=== PATIENT | male | born 1990 | race African-American/Black ===

== ENCOUNTER 2020-11-04 18:11 | Inpatient (IN) ==
[2020-11-04 22:14] LABS: Basophils # (auto) 0.02 K/uL (0-0.2); Basophils % (auto) 0.2 %; Eosinophils # (auto) 0.18 K/uL (0-0.5); Eosinophils % (auto) 1.9 %; Hematocrit (blood only) 46.3 % (42-52); Hemoglobin 15.9 g/dL (14.0-18.0); Immature Granulocytes # (auto) 0.01 K/uL (0.00-0.02); Immature Granulocytes % (auto) 0.1 %; Lymphocytes % (auto) 13.5 %; Mean Corpuscular Hemoglobin 32.9 pg (25-34); Mean Corpuscular Hgb Conc 34.3 g/dL (32-36); Mean Corpuscular Volume 95.7 fL (80-100); Mean Platelet Volume 11.1 fL (7.4-10.4); Monocytes # (auto) 0.86 K/uL (0.11-0.59); Monocytes % (auto) 8.9 %; Neutrophils # (auto) 7.27 K/uL (1.4-6.5); Neutrophils % (auto) 75.4 %; Platelet Count 258 K/uL (130-400); RDW Coefficient of Variation 13.8 % (11.5-14.5); RDW Standard Deviation 48.4 fL (36.4-46.3); Red Blood Count 4.84 M/uL (4.7-6.1); White Blood Count 9.64 K/uL (4.8-10.8)
[2020-11-04 22:32] LABS: Albumin Level 4.8 gm/dl (3.4-5.0); BUN Creatinine Ratio 14.5 (10-20); Calcium 10.2 mg/dl (8.5-10.1); Creatinine Clr Calc Pharmacy 101.9 ml/min; Est GFR (African American) 86.9 ml/min; Potassium 3.9 mmol/L (3.5-5.1)
[2020-11-04 22:36] LABS: Albumin Globulin Ratio 1.3 (0.9-2); Bilirubin,Total 0.9 mg/dl (0.2-1); Globulin 3.6 gm/dl (2.5-4.0); Total Protein 8.4 gm/dl (6.4-8.2)
[2020-11-04] MEDS ORDERED: SODIUM CHLORIDE 0.9% 1000ML 1,000 ML IV SCH (23:15)
[2020-11-04] MEDS ORDERED: SODIUM CHLORIDE 0.9% 1000ML 500 ML IV ONE (23:15)
[2020-11-04] MEDS ORDERED: ONDANSETRON INJ 2 MG/ML 2 ML VIAL IV STA (23:15)
[2020-11-04] MEDS ORDERED: HYDROmorphone INJ 0.5 MG/0.5 ML SYR IV STA (23:15)
[2020-11-04] MEDS ORDERED: cloNIDine HCL 0.1 MG TAB PO ONE (23:41)
[2020-11-04] MEDS ORDERED: OPTIRAY 320 100ml IV ONE (23:41)
[2020-11-05] MEDS ORDERED: HYDROmorphone INJ 0.5 MG/0.5 ML SYR IV STA (01:27)
--- NOTE | 2020-11-05 03:07 | History & Physical Report ---
Date of Service November 05, 2020 Assessment & Plan (1) Pancreatitis: Plan: Recurrent pancreatitis- Patient reports least 5 previous episodes. He does report alcohol use above what he thinks most people drink, and these current symptoms began shortly after alcohol intake. CT scan and MRCP both suggest pancreatitis and distended gallbladder, but inability to confirm gallstones or rule in/out acute cholecystitis HIDA scan has been ordered Famotidine 20 mg IV every 12 hours Patient is advised to refrain from alcohol intake Follow serial CBC with differential, chemistry profile and lipase levels Place on LR at 150 mils per hour Zofran 4 mg IV every 6 hours as needed (2) Gallbladder anomaly: Plan: See above (3) Alcohol use disorder: Plan: Last intake at this time 2 days ago, with alcohol levels less than 3.0 in the ED He reports that he does not think he is going to withdrawal and has not had that issue in the past. We will hold off on AWSS protocol for now (4) Gastritis and duodenitis: Plan: Placed on famotidine 20 mg IV every 12 hours Patient advised that this can be directly related to alcohol irritation History of Present Illness Chief Complaint: The patient presents to the emergency department with 2 days of abdominal pain and nausea, similar to previous episodes of pancreatitis Primary Care Provider: NO PCP The patient is a 29-year-old male with a past medical history of recurrent pancreatitis. This of the symptoms late Wednesday night and early Wednesday morning after eating pizza. He reports that he is at least 5 previous episodes of pancreatitis, with most recent being about 6 months ago. Upon reviewing systems, when asked if he drinks alcohol, patient reports he probably drinks mor e than most, with last intake just before the onset of symptoms. Abnormal laboratories: Lipase 2982, glucose 103, total protein 8.4, BUN 19. Alcohol level less than 3.0. COVID-[address] scan of abdomen and pelvis with contrast: Mild peripancreatic nonspecific haziness, cannot rule out interstitial edematous pancreatitis. Moderate distended gallbladder, equivocal cholelithiasis, cannot rule out acute cholecystitis. Equivocal associated gastritis and/or duodenitis. MRCP: Acute interstitial edematous pancreatitis. Distended gallbladder. No definite stones or ductal dilatation. Allergies Allergy/AdvReac Type Severity Reaction Status Date / Time No Known Allergies Allergy Verified 11/04/20 23:30 Home Medications Medication Instructions Recorded Confirmed Type ibuprofen 200 mg tablet 600 - 800 mg PO DIRECTED PRN 11/04/20 11/04/20 His tory Past Med/Surg History Medical History (Updated 11/05/20 @ 04:53 by Ruslan Raphael MD) Pancreatitis Social History Smoking Status: Never smoker Preferred Language: Indian Feels Safe at Home: Yes Review of Systems Review of Systems: The patient denies chest pain, palpitations, shortness of breath, dyspnea on exertion, cough, lower extremity swelling, sore throat, fevers, chills, sweats, diarrhea , constipation, blood in urine or stool, dysuria, urinary frequency or urgency, lightheadedness, dizziness, headache, memory loss, loss of consciousness, rash, abnormal bruising or bleeding, imbalance, focal or generalized weakness, numbness or tingling in arms or legs, generalized arthralgias or myalgias, back or neck pain, or night sweats. The review of systems is otherwise negative other than for that already noted above, and at least 10 systems have been reviewed. Physical Exam Physical Exam: The patient is awake, alert and oriented 3, well developed and well nourished, normocephalic and atraumatic, lying in bed and in no acute distress. HEENT--PERRL, EOMI, mucous membranes and oropharynx normal. Neck--supple. No JVD. No bruits. Thyroid normal, trachea midline, no adenopathy. Heart--normal S1 and S2. No murmurs, rubs or gallops. Lungs--clear bilaterally, no respiratory distress, no accessory muscle use. Abdomen--normal bowel sounds and soft. Mild epigastric discomfort with palpation Extremities--no cyanosis or clubbing. No edema. Dermatologic--normal skin turgor, normal color, no abnormal lymph nodes, no rash. Neurologic--cranial nerves II through XII grossly intact. Rheumatologic--normal range of motion. Psychiatric--normal affect. Results & Data Results & Data ([facility]) Vital Signs (Past 12 Hours) Vital Signs Temp Pulse Pulse Resp BP BP Pulse Ox 11/05/20 01:47 57 L 18 142/110 H 96 11/05/20 00:56 77 16 151/104 H 99 11/05/20 00:01 76 16 167/119 H 100 11/04/20 23:15 78 20 187/130 H 100 11/04/20 19:05 97.7 F 98 H 18 163/110 H 100 Laboratory Results Laboratory Results WBC 9.64 K/uL (4.8-10.8) 11/04/20 Unknown RBC 4.84 M/uL (4.7-6.1) 11/04/20 Unknown Hgb 15.9 g/dL (14.0-18.0) 11/04/20 Unknown Hct 46.3 % (42-52) 11/04/20 Unknown MCV 95.7 fL (80-100) 11/04/20 Unknown MCH 32.9 pg (25-34) 11/04/20 Unknown MCHC 34.3 g/dL (32-36) 11/04/20 Unknown RDW Std Deviation 48.4 fL (36.4-46.3) H 11/04/20 Unknown RDW Coeff of Austen 13.8 % (11.5-14.5) 11/04/20 Unknown Plt Count 258 K/uL (130-400) 11/04/20 Unknown MPV 11.1 fL (7.4-10.4) H 11/04/20 Unknown Immature Gran % (Auto) 0.1 % 11/04/20 Unknown Neut % (Auto) 75.4 % 11/04/20 Unknown Lymph % (Auto) 13.5 % 11/04/20 Unknown [place] % (Auto) 8.9 % 11/04/20 Unknown Eos % (Auto) 1.9 % 11/04/20 Unknown Baso % (Auto) 0.2 % 11/04/20 Unknown Neut # (Auto) 7.27 K/uL (1.4-6.5) H 11/04/20 Unknown Lymph # (Auto) 1.30 K/uL (1.2-3.4) 11/04/20 Unknown [place] # (Auto) 0.86 K/uL (0.11-0.59) H 11/04/20 Unknown Eos # (Auto) 0.18 K/uL (0-0.5) 11/04/20 Unknown Baso # (Auto) 0.02 K/uL (0-0.2) 11/04/20 Unknown Immature Gran # (Auto) 0.01 K/uL (0.00-0.02) 11/04/20 Unknown Sodium 138 mmol/L (136-145) 11/04/20 Unknown Potassium 3.9 mmol/L (3.5-5.1) 11/04/20 Unknown Chloride 104 mmol/L (98-107) 11/04/20 Unknown Carbon Dioxide 27 mmol/L (21-32) 11/04/20 Unknown Anion Gap 8.0 (3-11) 11/04/20 Unknown BUN 19 mg/dl (7-18) H 11/04/20 Unknown Creatinine 1.29 mg/dl (0.6-1.4) 11/04/20 Unknown Est Cr Clr Drug Dosing 101.9 ml/min 11/04/20 Unknown Est GFR ( Amer) 86.9 ml/min 11/04/20 Unknown Est GFR (Non-Af Amer) 75.0 ml/min 11/04/20 Unknown BUN/Creatinine Ratio 14.5 (10-20) 11/04/20 Unknown Glucose 103 mg/dl (70-99) H 11/04/20 Unknown Calcium 10.2 mg/dl (8.5-10.1) H 11/04/20 Unknown Total Bilirubin 0.9 mg/dl (0.2-1) 11/04/20 Unknown AST 27 U/L (15-37) 11/04/20 Unknown ALT 47 U/L (12-78) 11/04/20 Unknown Alkaline Phosphatase 100 U/L (45-117) 11/04/20 Unknown Total Protein 8.4 gm/dl (6.4-8.2) H 11/04/20 Unknown Albumin 4.8 gm/dl (3.4-5.0) 11/04/20 Unknown Globulin 3.6 gm/dl (2.5-4.0) 11/04/20 Unknown Albumin/Globulin Ratio 1.3 (0.9-2) 11/04/20 Unknown Lipase 2982 U/L (73-393) H 11/04/20 Unknown Ethyl Alcohol mg/dL < 3.0 mg/dl (0-3) 11/05/20 02:59 COVID-19 Eval Order Covid19 at [facility] 11/04/20 23:54 SARS-CoV-2 (PCR) NEGATIVE (Negative) 11/04/20 23:54 Diagnostic Findings [facility] Patient: ZENIA PLUNKETT (Male) : 89 Status: ER Date: 11/04/20 23:45 Room #: A2 History: Patient reports abdominal pain since Wednesday AM. Nausea and Vomiting History of pancreatitis. Opti 320 93 mL Patient's IV from ER leaked on first attempt to inject/scan. Injection and scan stopped. 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 Appendix present Slices: [id number] Priors: Tech: Ana Santos @ [phone] Exams: CT ABDOMEN & PELVIS With Contrast Contrast: IV Amt: Optiray 320 93 mL Accession Numbers: [id number] Referring Physician: KI GERARD Preliminary Findings Only See Final Report For Complete Findings CT ABDOMEN & PELVIS With Contrast: Mild peripancreatic haziness, nonspecific, cannot rule out interstitial edematous pancreatitis. Moderate distended gallbladder, equivocal cholelithiasis, cannot rule out acute cholecystitis. Equivocal associated gastritis and/or duodenitis. No fluid collection, necrosis or abscess. No SBO, free air or ascites. Normal appendix. Fatty liver. Radiologist: Tanja Tafoya M.D. Study ready at 23:50 and initial results transmitted at 00:07 *This report constitutes a preliminary interpretation only. Non-acute findings felt to be unrelated to the clinical presentation may not be discussed in this report. The study will be interpreted and a final report will be generated by the local Radiologist the following shift. To reach the hospital radiology department call [phone]. If a discrepancy is found between the preliminary and final interpretations of this study, please notify us via our Client Portal at [email or web address].You can also fax this report with a description of the discrepancy, or include the final report, to our daytime fax number [phone].If faxing, please indicate the severity of discrepancy using one of the following categories: [ ] 1 - Agree/Informational [ ] 2 - Unlikely to Affect Management [ ] 3 - Possible Eventual Change of Management [ ] 4 - Probable Immediate Change of Management For all other patient related information, please fax us at [phone]. [id number] [facility] Patient: ZENIA PLUNKETT (Male) : 89 Status: ER Date: 11/05/20 03:43 Room #: A2 History: abd pain since wednesday morning hx of pancreatitis. nausea and vomitting Slices: [id number] Priors: CT ABD/PELVIS Tech: Goran Jones @ [phone] Exams: MRCP Contrast: Accession Numbers: [id number] Referring Physician: REFERRED SELF Preliminary Findings Only See Final Report For Complete Findings MRCP : Comparison is made with CT abdomen pelvis done earlier. Acute interstitial edematous pancreatitis. Distended gallbladder, no definite stones or ductal dilatation. Radiologist: Tanja Tafoya M.D. Study ready at 03:47 and initial results transmitted at 04:25 *This report constitutes a preliminary interpretation only. Non-acute findings felt to be unrelated to the clinical presentation may not be discussed in this report. The study will be interpreted and a final report will be generated by the local Radiologist the following shift. To reach the hospital radiology department call [phone]. If a discrepancy is found between the preliminary and final interpretations of this study, please notify us via our Client Portal at [email or web address].You can also fax this report with a description of the discrepancy, or include the final report, to our daytime fax number [phone].If faxing, please indicate the severity of discrepancy using one of the following categories: [ ] 1 - Agree/Informational [ ] 2 - Unlikely to Affect Management [ ] 3 - Possible Eventual Change of Management [ ] 4 - Probable Immediate Change of Management For all other patient related information, please fax us at [phone]. [id number] Code Status & VTE Plan Code Status Full code VTE Prophylaxis Plan VTE Prophylaxis will be ordered: Yes PG Care Time/CCT Total # of Minutes Spent Total Time Spent with Patient: Total time spent is greater than 50% in coordination of care (as documented) at patient's floor/unit and/or counseling patient: Coding Level of Care Code 84179 Initial Inpt Care Lvl 2 Diagnoses Pancreatitis K85.90 Gallbladder anomaly Q44.1 Alcohol use disorder Gastritis and duodenitis K29.90
[2020-11-05] MEDS ORDERED: LORazepam 0.5 MG/1 ML VIAL IV PRN (03:08)
[2020-11-05] MEDS: KETOROLAC TROMETHAMINE 15 MG/ML VIAL IV PRN ×2 (05:34→17:51)
[2020-11-05] MEDS ORDERED: FLUARIX QUADRIVALENT 0.5 ML SYR IM ONE (06:15)
[2020-11-05] MEDS: FAMOTIDINE 20 MG in SYRINGE 3 ML IV SCH ×2 (06:21→20:09)
[2020-11-05] MEDS: LACTATED RINGER'S 1,000 ML IV SCH ×2 (06:21→12:09)
[2020-11-05] MEDS ORDERED: KETOROLAC TROMETHAMINE 15 MG/ML VIAL IV ONE (06:37)
--- NOTE | 2020-11-05 07:45 | CT Scan Report ---
CT SCAN OF THE ABDOMEN AND PELVIS WITH IV CONTRAST CLINICAL HISTORY: Generalized abdominal pain. Nausea and vomiting. Pancreatitis. COMPARISON STUDY: No priors. TECHNIQUE: Following the IV administration of 93 cc of Optiray 320, CT scan of the abdomen and pelvi s is performed from the lung bases to the proximal femora. Images are reviewed in the axial, sagittal , and coronal planes. There was an IV malfunction with the initial contrast injection. IV contrast wa s then administered without complication. A dose lowering technique was utilized adhering to the prin ciples of JACINDA. CT DOSE: 347.28 mGy.cm FINDINGS: Lung bases: The heart is normal in size and without pericardial effusion. The lung bases are clear. Liver: The contrast-enhanced liver is normal in size and contour. Diminished hepatic attenuation sugg ests steatosis. There is no intrahepatic biliary ductal dilatation. The hepatic veins and portal vein s are patent. Gallbladder: The gallbladder is distended but otherwise normal in appearance. Spleen: Normal in size and attenuation. Pancreas: The pancreas is mildly edematous. There is peripancreatic stranding and fluid, and the appe arance is consistent with acute pancreatitis. The duct is normal in caliber. The gland enhances throu ghout. The splenic vein is patent. No organized peripancreatic fluid collection is identified. There are prominent tiny peripancreatic lymph nodes. Adrenal glands: Unremarkable. Kidneys: The contrast enhanced kidneys are normal in size and without hydronephrosis. The kidneys enh ance and excrete symmetrically. Abdominal vasculature: The abdominal aorta is normal in course and caliber. Bowel: Mild fecal retention is seen throughout the colon. There is no bowel obstruction. The appendix is well-visualized and normal Peritoneum: There is no intraperitoneal free air or abdominal ascites. There is a fat-containing umbi lical hernia. Lymphadenopathy: None. Pelvic viscera: The bladder, prostate, and seminal vesicles are normal as visualized. Skeletal structures: No lytic or blastic lesions are seen. IMPRESSION: 1. Findings are consistent with acute pancreatitis. 2. The gland enhances throughout and there is no organized peripancreatic fluid collection. 3. Hepatic steatosis. ACT 112: Negative or not required by law. Electronically signed by: Gallito Franz M.D. 11/05/2020 7:44 AM
--- NOTE | 2020-11-05 08:07 | Magnetic Resonance Report ---
MR MRCP HISTORY: pancreatitis, dilated gallbladder on CT TECHNIQUE: MRCP of the abdomen was performed without contrast according to standard departmental prot ocol. COMPARISON STUDY: Abdomen and pelvis CT 11/04/2020. FINDINGS: The lung bases are clear. The liver, spleen, adrenal glands, and kidneys unremarkable. The gallbladder remains mildly distended. No gallbladder wall thickening or gallstones identified. Mild p eripancreatic edema persists consistent with acute pancreatitis. The main portal vein is patent. No r etroperitoneal lymphadenopathy. No evidence for dilatation of the common bile duct or main pancreatic duct. The main pancreatic duct is not well visualized due to the motion artifact. The mid common joão e duct is also not well identified and is likely transient decompressed by edematous pancreas. IMPRESSION: 1. Acute pancreatitis, unchanged. 2. Mildly distended gallbladder. No gallstones. 3. No evidence for dilatation of the common bile duct or main pancreatic duct. ACT 112: Negative or not required by law. Electronically signed by: Mg Medina M.D. 11/05/2020 8:05 AM
[2020-11-05] MEDS: MoRPHine SULFATE 4 MG/ML 1 ML CARP\\VIAL IV PRN ×7 (09:12→23:43)
--- NOTE | 2020-11-05 10:04 | Hospitalist Progress Note ---
Date of Service November 05, 2020 Assessment & Plan (1) Pancreatitis: Plan: - Recurrent pancreatitis - reports approx. 5 previous episodes lasting about 2-3 days - last episode approx. 6 months ago - CT/MRCP - acute pancreatitis - mild peripancreatic edema; mildly distended GB with no stones; no evidence of dilatation of the CBD or main pancreatic duct - Given level of pain will hold on HIDA to allow for narcotic pain relief - will tentatively plan for scan tomorrow to further evaluated distended GB - Famotidine 20 mg IV BID; Pain and anti-emetic regimen - LR at 150 mL/hr - Does have an appetite - keep a full liquid diet for now and assess for advancement - Monitor labs in AM (2) Gallbladder anomaly: Plan: - See above; holding on HIDA to allow for adequate pain control of pancreatitis (3) Alcohol use disorder: Plan: - Last intake was 2 days ago; no detected alcohol on admission - reports no history of withdrawal but feels he may drink more alcohol then most - No signs of withdrawal and can hold on AWSS protocol currently but monitor (4) Gastritis and duodenitis: Plan: - Placed on famotidine 20 mg IV every 12 hours - Patient advised that this can be directly related to alcohol irritation Plan: - Continue aggressive hydration and maintain pain control; will monitor for ability to do HIDA tomorrow - Labs in AM Admission and Anticipated Discharge Date Admission Date: November 05, 2020 Subjective Reports ongoing LUQ pain. He thought he could tolerate waiting for HIDA but Toradol was not helping. Morphine is assisting with pain control and will reschedule HIDA. He does report an appetite and will allow a light diet. He had diarrhea on Wednesday but this has since resolved. Verbalizes no new complaints Review of Systems Review of Systems: REVIEW OF SYSTEMS General/Constitutional: Denies fever/chills Cardiovascular: Denies chest pain, palpitations, edema Respiratory: Denies cough, sputum, SOB, wheezing GI: + LUQ abdominal pain with radiation to back; Denies nausea, vomiting, constipation, diarrhea, melena/hematochezia : Denies dysuria Musculoskeletal: Denies joint/muscle aches Neurologic: Denies dizziness/lightheadedness Psychiatric: Denies H/O or active alcohol withdrawal Skin: Denies rash Physical Exam Physical Exam: PHYSICAL EXAM General Appearance: WDWN in NAD who is A&O x 3 HEENT: Head is normocephalic/atraumatic; Hearing grossly intact; Mucous membranes moist Neck: Supple; Trachea midline; Neg JVD Heart: RRR with no M/G/R Lungs: CTA in all lung arteaga bilaterally; Respirations unlabored; Neg accessory muscle use Abdomen: Soft, non-distended; Positive BS x 4 quadrants; no acute abdomen, guarding, or rigidity - Tenderness to LUQ Extremities: Capillary refill < 2 seconds; Neg cyanosis or edema Neurological: Speech clear; Gross motor/sensory function intact; Neg focal neurologic deficits Psychiatric: Appropriate mood/affect Skin: Normal Color; Warm/Dry Results & Data Results & Data ([facility]) Vital Signs (Past 12 Hours) Vital Signs Temp Pulse Pulse Resp BP BP Pulse Ox 11/05/20 07:31 36.6 C 66 16 159/97 H 96 11/05/20 06:30 64 159/111 H 11/05/20 05:24 36.5 C 75 15 170/123 H 100 11/05/20 05:11 77 16 152/98 H 99 11/05/20 04:27 80 16 144/102 H 100 11/05/20 01:47 57 L 18 142/110 H 96 11/05/20 00:56 77 16 151/104 H 99 11/05/20 00:01 76 16 167/119 H 100 11/04/20 23:15 78 20 187/130 H 100 PG Care Time/CCT Total # of Minutes Spent Total Time Spent with Patient: Total time spent is greater than 50% in coordination of care (as documented) at patient's floor/unit and/or counseling patient: Coding Level of Care Code None Diagnoses Pancreatitis K85.90 Gallbladder anomaly Q44.1 Alcohol use disorder Gastritis and duodenitis K29.90
[2020-11-05] MEDS: ONDANSETRON INJ 2 MG/ML 2 ML VIAL IV PRN ×2 (12:08→19:33)
[2020-11-05 12:27] LABS: Amphetamines+Metham, Urine Neg (Neg); Barbiturates, Urine Neg (Neg); Benzodiazepine, Urine Neg (Neg); Cocaine, Urine Neg (Neg); MDMA (Ecstacy), Urine Neg (Neg); Methadone, Urine Neg (Neg); Opiate, Urine Pos (Neg); Phencyclidine, Urine Neg (Neg)
[2020-11-05] MEDS: hydrALAZINE HCL 20 MG/ML VIAL IV PRN (18:00)
--- NOTE | 2020-11-05 18:31 | Emergency Department Note ---
History of Present Illness General Chief complaint: Abdominal Pain Stated complaint: ABD PAIN, VOMITING Time Seen by Provider: 11/04/20 23:09 History of Present Illness Maximum Pain Intensity: 5 Home Medications Medication Instructions Recorded Confirmed Type ibuprofen 200 mg tablet 600 - 800 mg PO DIRECTED PRN 11/04/20 11/04/20 Histo ry Allergies Allergy/AdvReac Type Severity Reaction Status Date / Time No Known Allergies Allergy Verified 11/04/20 23:30 Past Med/Surg History Medical History (Updated 11/05/20 @ 04:53 by Ruslan Raphael MD) Pancreatitis Social History Smoking Status: Former smoker Cigarettes Per Day: 3 packs; Second Hand Exposure: No; Hx Alcohol Use: Yes Alcohol type: beer, wine and hard liquor Hx Substance Use: No Preferred Language: Cambodian Communication Ability: Effective 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 Beliefs That Will Affect Care: None Current Living Situation: Alone Feels Safe at Home: Yes Assistive Devices: None Physical Exam Vital Signs Vital Signs - 24 hr 11/04/20 19:05 11/04/20 23:15 11/05/20 00:01 Temperature 36.5 C Temperature Source Temporal Artery Scan Pulse Rate 98 H Pulse Rate [Right Finger] 78 76 Pulse Rhythm [Right Finger] Respiratory Rate 18 20 16 Respiratory Effort / Characteristics Non-Labored Non-Labored Respiratory Depth Normal Normal Respiratory Pattern Regular Blood Pressure 163/110 H Blood Pressure [Right Arm] 187/130 H 167/119 H Blood Pressure Mean 127 Blood Pressure Mean [Right Arm] 149 135 Blood Pressure Position [Right Arm] Lying Pulse Oximetry 100 100 100 Oxygen Delivery Method Room Air Room Air Room Air Sepsis Recent Fever Within 48 Hours No Sepsis New/Unexplained Change in Mental Status No Sepsis Action Taken by Nursing No Action Required 11/05/20 00:56 11/05/20 01:47 Temperature Temperature Source Pulse Rate Pulse Rate [Right Finger] 77 57 L Pulse Rhythm [Right Finger] Regular Respiratory Rate 16 18 Respiratory Effort / Characteristics Respiratory Depth Normal Normal Respiratory Pattern Blood Pressure Blood Pressure [Right Arm] 151/104 H 142/110 H Blood Pressure Mean Blood Pressure Mean [Right Arm] 119 120 Blood Pressure Position [Right Arm] Pulse Oximetry 99 96 Oxygen Delivery Method Room Air Sepsis Recent Fever Within 48 Hours Sepsis New/Unexplained Change in Mental Status Sepsis Action Taken by Nursing Course Administered Medications Hydralazine HCl (Hydralazine Hcl 20 Mg/Ml Vial) 10 mg IV Q6H PRN PRN Reason: Hypertension Stop: 12/05/20 17:09 Last Admin: 11/05/20 18:00 Dose: 10 mg Documented by: [id number] Lactated Ringer's (Lr) 1,000 mls @ 150 mls/hr IV .Q6H40M LUI Stop: 11/05/20 18:49 Last Admin: 11/05/20 12:09 Dose: 150 mls/hr Documented by: [id number] Infusion: 11/05/20 12:09 Dose: 150 mls/hr Documented by: [id number] Admin: 11/05/20 06:21 Dose: 150 mls/hr Documented by: [id number] Famotidine 20 mg/ Syringe 5 mls @ 2.5 mls/min IV Q12 LUI Stop: 12/05/20 05:59 Last Admin: 11/05/20 06:21 Dose: 2.5 mls/min Documented by: [id number] Ketorolac Tromethamine (Ketorolac Tromethamine 15 Mg/Ml Vial) 15 mg IV Q6H PRN PRN Reason: Moderate Pain Stop: 11/10/20 05:22 Last Admin: 11/05/20 17:51 Dose: 15 mg Documented by: [id number] Admin: 11/05/20 05:34 Dose: 15 mg Documented by: [id number] Morphine Sulfate (Morphine Sulfate 4 Mg/Ml 1 Ml Carp\Vial) 4 mg IV Q2H PRN PRN Reason: Pain Stop: 11/19/20 09:02 Last Admin: 11/05/20 17:01 Dose: 4 mg Documented by: [id number] Admin: 11/05/20 14:56 Dose: 4 mg Documented by: [id number] Ondansetron HCl (Ondansetron Inj 2 Mg/Ml 2 Ml Vial) 4 mg IV Q6H PRN PRN Reason: Nausea Stop: 12/05/20 05:29 Last Admin: 11/05/20 12:08 Dose: 4 mg Documented by: [id number] Discontinued Medications Clonidine HCl (Clonidine Hcl 0.1 Mg Tab) 0.1 mg PO NOW ONE Stop: 11/04/20 23:42 Last Admin: 11/05/20 00:06 Dose: 0.1 mg Documented by: [id number] Hydromorphone HCl (Hydromorphone Inj 0.5 Mg/0.5 Ml Syr) 0.5 mg IV NOW STA Stop: 11/04/20 23:16 Last Admin: 11/04/20 23:46 Dose: 0.5 mg Documented by: [id number] Hydromorphone HCl (Hydromorphone Inj 0.5 Mg/0.5 Ml Syr) 0.5 mg IV NOW STA Stop: 11/05/20 01:28 Last Admin: 11/05/20 01:35 Dose: 0.5 mg Documented by: [id number] Sodium Chloride (Nss 1000ml) 1,000 mls @ 125 mls/hr IV .Q8H LUI Stop: 12/04/20 23:14 Last Infusion: 11/05/20 06:27 Dose: 0 mls/hr Documented by: [id number] Admin: 11/05/20 00:36 Dose: 125 mls/hr Documented by: [id number] Sodium Chloride (Nss 1000ml) 500 mls @ 999 mls/hr IV .Q31M ONE Stop: 11/04/20 23:45 Last Infusion: 11/05/20 00:22 Dose: 0 mls/hr Documented by: [id number] Admin: 11/04/20 23:51 Dose: 999 mls/hr Documented by: [id number] Ioversol (Optiray 320 100ml) 93 ml IV ONCE ONE Stop: 11/04/20 23:42 Last Admin: 11/04/20 23:41 Dose: 93 ml Documented by: [id number] Ketorolac Tromethamine (Ketorolac Tromethamine 15 Mg/Ml Vial) 15 mg IV NOW ONE Stop: 11/05/20 06:38 Last Admin: 11/05/20 06:40 Dose: 15 mg Documented by: [id number] Morphine Sulfate (Morphine Sulfate 4 Mg/Ml 1 Ml Carp\Vial) 4 mg IV Q3H PRN PRN Reason: Pain Stop: 11/19/20 09:02 Last Admin: 11/05/20 12:08 Dose: 4 mg Documented by: [id number] Admin: 11/05/20 09:12 Dose: 4 mg Documented by: [id number] Ondansetron HCl (Ondansetron Inj 2 Mg/Ml 2 Ml Vial) 4 mg IV NOW STA Stop: 11/04/20 23:16 Last Admin: 11/04/20 23:47 Dose: 4 mg Documented by: [id number] Medical Decision Making Laboratory Data Result diagrams: 11/04/20 Unknown 11/04/20 Unknown Lab Results 11/04/20 11/04/20 11/04/20 Range/Units 23:54 23:54 Unknown WBC 9.64 (4.8-10.8) K/uL RBC 4.84 (4.7-6.1) M/uL Hgb 15.9 (14.0-18.0) g/dL Hct 46.3 (42-52) % MCV 95.7 (80-100) fL MCH 32.9 (25-34) pg MCHC 34.3 (32-36) g/dL RDW Std Deviation 48.4 H (36.4-46.3) fL RDW Coeff of [place] 13.8 (11.5-14.5) % Plt Count 258 (130-400) K/uL MPV 11.1 H (7.4-10.4) fL Immature Gran % (Auto) 0.1 % Neut % (Auto) 75.4 % Lymph % (Auto) 13.5 % [place] % (Auto) 8.9 % Eos % (Auto) 1.9 % Baso % (Auto) 0.2 % Neut # (Auto) 7.27 H (1.4-6.5) K/uL Lymph # (Auto) 1.30 (1.2-3.4) K/uL [place] # (Auto) 0.86 H (0.11-0.59) K/uL Eos # (Auto) 0.18 (0-0.5) K/uL Baso # (Auto) 0.02 (0-0.2) K/uL Immature Gran # (Auto) 0.01 (0.00-0.02) K/uL Sodium (136-145) mmol/L Potassium (3.5-5.1) mmol/L Chloride (98-107) mmol/L Carbon Dioxide (21-32) mmol/L Anion Gap (3-11) BUN (7-18) mg/dl Creatinine (0.6-1.4) mg/dl Est Cr Clr Drug Dosing ml/min Est GFR ( Amer) ml/min Est GFR (Non-Af Amer) ml/min BUN/Creatinine Ratio (10-20) Glucose (70-99) mg/dl Calcium (8.5-10.1) mg/dl Total Bilirubin (0.2-1) mg/dl AST (15-37) U/L ALT (12-78) U/L Alkaline Phosphatase (45-117) U/L Total Protein (6.4-8.2) gm/dl Albumin (3.4-5.0) gm/dl Globulin (2.5-4.0) gm/dl Albumin/Globulin Ratio (0.9-2) Lipase (73-393) U/L Ethyl Alcohol mg/dL (0-3) mg/dl COVID-19 Eval Order Covid19 at [facility] SARS-CoV-2 (PCR) NEGATIVE (Negative) 11/04/20 11/05/20 Range/Units Unknown 02:59 WBC (4.8-10.8) K/uL RBC (4.7-6.1) M/uL Hgb (14.0-18.0) g/dL Hct (42-52) % MCV (80-100) fL MCH (25-34) pg MCHC (32-36) g/dL RDW Std Deviation (36.4-46.3) fL RDW Coeff of [place] (11.5-14.5) % Plt Count (130-400) K/uL MPV (7.4-10.4) fL Immature Gran % (Auto) % Neut % (Auto) % Lymph % (Auto) % [place] % (Auto) % Eos % (Auto) % Baso % (Auto) % Neut # (Auto) (1.4-6.5) K/uL Lymph # (Auto) (1.2-3.4) K/uL [place] # (Auto) (0.11-0.59) K/uL Eos # (Auto) (0-0.5) K/uL Baso # (Auto) (0-0.2) K/uL Immature Gran # (Auto) (0.00-0.02) K/uL Sodium 138 (136-145) mmol/L Potassium 3.9 (3.5-5.1) mmol/L Chloride 104 (98-107) mmol/L Carbon Dioxide 27 (21-32) mmol/L Anion Gap 8.0 (3-11) BUN 19 H (7-18) mg/dl Creatinine 1.29 (0.6-1.4) mg/dl Est Cr Clr Drug Dosing 101.9 ml/min Est GFR ( Amer) 86.9 ml/min Est GFR (Non-Af Amer) 75.0 ml/min BUN/Creatinine Ratio 14.5 (10-20) Glucose 103 H (70-99) mg/dl Calcium 10.2 H (8.5-10.1) mg/dl Total Bilirubin 0.9 (0.2-1) mg/dl AST 27 (15-37) U/L ALT 47 (12-78) U/L Alkaline Phosphatase 100 (45-117) U/L Total Protein 8.4 H (6.4-8.2) gm/dl Albumin 4.8 (3.4-5.0) gm/dl Globulin 3.6 (2.5-4.0) gm/dl Albumin/Globulin Ratio 1.3 (0.9-2) Lipase 2982 H (73-393) U/L Ethyl Alcohol mg/dL < 3.0 (0-3) mg/dl COVID-19 Eval Order SARS-CoV-2 (PCR) (Negative) Imaging Data Radiologist's Impression: Abdomen/Pelvis CT 11/04/20 23:16 CT SCAN OF THE ABDOMEN AND PELVIS WITH IV CONTRAST CLINICAL HISTORY: Generalized abdominal pain. Nausea and vomiting. Pancreatitis. COMPARISON STUDY: No priors. TECHNIQUE: Following the IV administration of 93 cc of Optiray 320, CT scan of the abdomen and pelvis is performed from the lung bases to the proximal femora. Images are reviewed in the axial, sagittal, and coronal planes. There was an IV malfunction with the initial contrast injection. IV contrast was then administered without complication. A dose lowering technique was utilized adhering to the principles of ALARA. CT DOSE: 347.28 mGy.cm FINDINGS: Lung bases: The heart is normal in size and without pericardial effusion. The lung bases are clear. Liver: The contrast-enhanced liver is normal in size and contour. Diminished hepatic attenuation suggests steatosis. There is no intrahepatic biliary ductal dilatation. The hepatic veins and portal veins are patent. Gallbladder: The gallbladder is distended but otherwise normal in appearance. Spleen: Normal in size and attenuation. Pancreas: The pancreas is mildly edematous. There is peripancreatic stranding and fluid, and the appearance is consistent with acute pancreatitis. The duct is normal in caliber. The gland enhances throughout. The splenic vein is patent. No organized peripancreatic fluid collection is identified. There are prominent tiny peripancreatic lymph nodes. Adrenal glands: Unremarkable. Kidneys: The contrast enhanced kidneys are normal in size and without hydronephrosis. The kidneys enhance and excrete symmetrically. Abdominal vasculature: The abdominal aorta is normal in course and caliber. Bowel: Mild fecal retention is seen throughout the colon. There is no bowel obstruction. The appendix is well-visualized and normal Peritoneum: There is no intraperitoneal free air or abdominal ascites. There is a fat-containing umbilical hernia. Lymphadenopathy: None. Pelvic viscera: The bladder, prostate, and seminal vesicles are normal as visualized. Skeletal structures: No lytic or blastic lesions are seen. IMPRESSION: 1. Findings are consistent with acute pancreatitis. 2. The gland enhances throughout and there is no organized peripancreatic fluid collection. 3. Hepatic steatosis. ACT 112: Negative or not required by law. Electronically signed by: Gallito Franz M.D. 11/05/2020 7:44 AM Cholangiopancreatography MRI 11/05/20 02:41 MR MRCP HISTORY: pancreatitis, dilated gallbladder on CT TECHNIQUE: MRCP of the abdomen was performed without contrast according to standard departmental protocol. COMPARISON STUDY: Abdomen and pelvis CT 11/04/2020. FINDINGS: The lung bases are clear. The liver, spleen, adrenal glands, and kidneys unremarkable. The gallbladder remains mildly distended. No gallbladder wall thickening or gallstones identified. Mild peripancreatic edema persists consistent with acute pancreatitis. The main portal vein is patent. No retroperitoneal lymphadenopathy. No evidence for dilatation of the common bile duct or main pancreatic duct. The main pancreatic duct is not well visualized due to the motion artifact. The mid common bile duct is also not well identified and is likely transient decompressed by edematous pancreas. IMPRESSION: 1. Acute pancreatitis, unchanged. 2. Mildly distended gallbladder. No gallstones. 3. No evidence for dilatation of the common bile duct or main pancreatic duct. ACT 112: Negative or not required by law. Electronically signed by: Mg Medina M.D. 11/05/2020 8:05 AM Discharge Plan Visit Data Chief Complaint: Abdominal Pain Stated Complaint: ABD PAIN, VOMITING ED Provider: Agustin,Cintia B Patient Disposition: Admitted As Inpatient Discharge Instructions Interventions: ED Discharge Assessment Last Done: 11/05/20 05:11
[2020-11-05] MEDS ORDERED: KETOROLAC TROMETHAMINE 15 MG/ML VIAL IV PRN (19:33)
[2020-11-06] MEDS ORDERED: ONDANSETRON INJ 2 MG/ML 2 ML VIAL ONE (00:15)
[2020-11-06] MEDS ORDERED: diphenhydrAMINE 50 MG/ML VIAL IV STA (00:25)
[2020-11-06] MEDS ORDERED: SUCRALFATE 1 GM TAB PO ONE (00:45)
[2020-11-06] MEDS ORDERED: SUCRALFATE 1 GM/10 ML UDC PO ONE (01:15)
[2020-11-06] MEDS: ONDANSETRON INJ 2 MG/ML 2 ML VIAL IV PRN ×2 (04:59→08:51)
[2020-11-06] MEDS: MoRPHine SULFATE 4 MG/ML 1 ML CARP\\VIAL IV PRN ×7 (04:59→21:44)
[2020-11-06 07:02] LABS: Basophils # (auto) 0.03 K/uL (0-0.2); Basophils % (auto) 0.3 %; Hematocrit (blood only) 37.8 % (42-52); Immature Granulocytes # (auto) 0.02 K/uL (0.00-0.02); Immature Granulocytes % (auto) 0.2 %; Lymphocytes # (auto) 1.05 K/uL (1.2-3.4); Lymphocytes % (auto) 10.7 %; Mean Corpuscular Hgb Conc 34.4 g/dL (32-36); Mean Corpuscular Volume 93.1 fL (80-100); Mean Platelet Volume 11.3 fL (7.4-10.4); Monocytes % (auto) 9.2 %; Neutrophils # (auto) 7.71 K/uL (1.4-6.5); Neutrophils % (auto) 78.6 %; Platelet Count 214 K/uL (130-400); RDW Coefficient of Variation 13.6 % (11.5-14.5); RDW Standard Deviation 46.6 fL (36.4-46.3); Red Blood Count 4.06 M/uL (4.7-6.1); White Blood Count 9.81 K/uL (4.8-10.8)
[2020-11-06 07:37] LABS: Albumin Globulin Ratio 1.1 (0.9-2); Albumin Level 3.8 gm/dl (3.4-5.0); BUN Creatinine Ratio 11.8 (10-20); Bilirubin,Total 0.7 mg/dl (0.2-1); Calcium 9.1 mg/dl (8.5-10.1); Creatinine Clr Calc Pharmacy 127.8 ml/min; Est GFR (African American) 115.4 ml/min; Est GFR (Non-African American) 99.6 ml/min; Globulin 3.4 gm/dl (2.5-4.0); Potassium 4.6 mmol/L (3.5-5.1); Total Protein 7.2 gm/dl (6.4-8.2)
[2020-11-06] MEDS: FAMOTIDINE 20 MG in SYRINGE 3 ML IV SCH ×2 (08:59→20:03)
[2020-11-06] MEDS: LACTATED RINGER'S 1,000 ML IV SCH ×2 (09:44→18:28)
[2020-11-06] MEDS: SUCRALFATE 1 GM/10 ML UDC PO SCH ×4 (10:25→20:02)
[2020-11-06] MEDS: PANTOprazole 40 MG in SYRINGE 0 ML IV SCH ×2 (10:25→20:02)
[2020-11-06 11:11] LABS: Hematocrit (blood only) 36.6 % (42-52); Hemoglobin 12.4 g/dL (14.0-18.0)
--- NOTE | 2020-11-06 17:47 | Hospitalist Progress Note ---
Date of Service November 06, 2020 Assessment & Plan (1) Pancreatitis: Plan: - Recurrent pancreatitis - reports approx. 5 previous episodes lasting about 2-3 days - last episode approx. 6 months ago - CT/MRCP - acute pancreatitis - mild peripancreatic edema; mildly distended GB with no stones; no evidence of dilatation of the CBD or main pancreatic duct - Given level of pain will hold on HIDA to allow for narcotic pain relief - Famotidine 20 mg IV BID and add Protonix IV BID; Pain and anti-emetic regimen - LR at 150 mL/hr - Does have an appetite - will reduce to clears given ongoing pain and assess tomorrow for advancement - Did have some blood tinged vomit and will hold further Toradol and can use Tylenol for mild pain - Hgb is holding and will monitor - remains hemodynamically stable - Monitor labs in AM (2) Gallbladder anomaly: Plan: - See above; holding on HIDA to allow for adequate pain control of pancreatitis (3) Alcohol use disorder: Plan: - Last intake was 2 days ago; no detected alcohol on admission - reports no history of withdrawal but feels he may drink more alcohol then most - No signs of withdrawal and can hold on AWSS protocol currently but monitor; has been having higher BPs but suspect this is pain related as he does not appear to be withdrawaling at this time (4) Gastritis and duodenitis: Plan: - Placed on famotidine 20 mg IV every 12 hours; Protonix BID - Blood-tinged vomit yesterday - maybe some bunny-pike tearing? Hgb is stable and maybe some dilutional given fluids; AM labs - Hold Toradol and use Tylenol for breakthrough pain - Patient advised that this can be directly related to alcohol irritation Plan: - Continue aggressive hydration and maintain pain control; will monitor for ability to do HIDA tomorrow - Labs in AM - Pt reports chronic issues with swallowing (mostly pills and intermittently solids) noticed this after getting out of the [employer] - did recommend that he get GI follow-up and this can be deferred to outpatient, have had numerous members with eosinophilic esophagitis causing chronic dysphagia. No eosinophilia on labs but may warrant scopes. Discussed GI consultation here and he does not want to do a scope at this time - if Hgb stays stable without further blood-tinged vomit can defer to outpatient F/U Admission and Anticipated Discharge Date Admission Date: November 05, 2020 Subjective Was having more abdominal pain this AM with breakfast of full liquids however was impro jessica after lunch with keeping only clears on board. He did have some bright red possibly bloody vomit yesterday. He states he did have a red popsicle earlier. No further episodes. Hemoglobin slightly lower but stable and will monitor. Review of Systems Review of Systems: REVIEW OF SYSTEMS General/Constitutional: Denies fever/chills ENT: + chronic difficulty swallowing - mostly pills Cardiovascular: Denies chest pain, palpitations, edema Respiratory: Denies cough, sputum, SOB, wheezing GI: + LUQ abdominal pain (improved this afternoon); Denies nausea, vomiting, constipation, diarrhea, melena/hematochezia : Denies dysuria Musculoskeletal: Denies joint/muscle aches Neurologic: Denies dizziness/lightheadedness Psychiatric: Denies H/O or active alcohol withdrawal Skin: Denies rash Physical Exam Physical Exam: PHYSICAL EXAM General Appearance: WDWN in NAD who is A&O x 3 HEENT: Head is normocephalic/atraumatic; Hearing grossly intact; Mucous membranes moist Neck: Supple; Trachea midline; Neg JVD Heart: RRR with no M/G/R Lungs: CTA in all lung arteaga bilaterally; Respirations unlabored; Neg accessory muscle use Abdomen: Soft, non-distended; Positive BS x 4 quadrants; no acute abdomen, guarding, or rigidity - Tenderness to LUQ Extremities: Capillary refill < 2 seconds; Neg cyanosis or edema Neurological: Speech clear; Gross motor/sensory function intact; Neg focal neurologic deficits Psychiatric: Appropriate mood/affect Skin: Normal Color; Warm/Dry Results & Data Results & Data ([facility]) Vital Signs (Past 12 Hours) Vital Signs Temp Pulse Resp BP Pulse Ox 11/06/20 15:36 36.6 C 69 16 151/98 H 93 11/06/20 08:40 37.0 C 100 H 16 165/100 H 99 PG Care Time/CCT Total # of Minutes Spent Total Time Spent with Patient: Total time spent is greater than 50% in coor dination of care (as documented) at patient's floor/unit and/or counseling patient: Coding Level of Care Code 05358 Subseq Hosp Care Lvl 3 Diagnoses Pancreatitis K85.90 Gallbladder anomaly Q44.1 Alcohol use disorder Gastritis and duodenitis K29.90
[2020-11-06] MEDS ORDERED: ACETAMINOPHEN 500 MG TAB PO PRN (17:51)
[2020-11-07] MEDS: MoRPHine SULFATE 4 MG/ML 1 ML CARP\\VIAL IV PRN ×7 (00:28→21:56)
[2020-11-07] MEDS: LACTATED RINGER'S 1,000 ML IV SCH ×3 (02:15→18:33)
[2020-11-07 07:51] LABS: Codeine Urine NEGATIVE ng/mL (<50); Hydrocodone Urine NEGATIVE ng/mL (<50); Hydromor Urine 925 ng/mL (<50); Morphine Urine 1090 ng/mL (<50); Norhydrocodone Conf Ur NEGATIVE ng/mL (<50); Noroxycodone Urine NEGATIVE ng/mL (<50); Oxycodone Urine NEGATIVE ng/mL (<50); Oxymorph Urine NEGATIVE ng/mL (<50)
[2020-11-07] MEDS: hydrALAZINE HCL 20 MG/ML VIAL IV PRN (07:52)
[2020-11-07 08:03] LABS: Basophils # (auto) 0.03 K/uL (0-0.2); Basophils % (auto) 0.7 %; Eosinophils # (auto) 0.25 K/uL (0-0.5); Eosinophils % (auto) 5.8 %; Hematocrit (blood only) 34.5 % (42-52); Hemoglobin 12.1 g/dL (14.0-18.0); Immature Granulocytes # (auto) 0.01 K/uL (0.00-0.02); Immature Granulocytes % (auto) 0.2 %; Lymphocytes # (auto) 0.95 K/uL (1.2-3.4); Lymphocytes % (auto) 22.2 %; Mean Corpuscular Hemoglobin 32.6 pg (25-34); Mean Corpuscular Hgb Conc 35.1 g/dL (32-36); Mean Platelet Volume 10.8 fL (7.4-10.4); Monocytes # (auto) 0.28 K/uL (0.11-0.59); Monocytes % (auto) 6.5 %; Neutrophils # (auto) 2.76 K/uL (1.4-6.5); Neutrophils % (auto) 64.6 %; Platelet Count 204 K/uL (130-400); RDW Coefficient of Variation 13.6 % (11.5-14.5); RDW Standard Deviation 46.4 fL (36.4-46.3); Red Blood Count 3.71 M/uL (4.7-6.1); White Blood Count 4.28 K/uL (4.8-10.8)
[2020-11-07] MEDS: PANTOprazole 40 MG in SYRINGE 0 ML IV SCH ×2 (08:05→20:28)
[2020-11-07] MEDS: FAMOTIDINE 20 MG in SYRINGE 3 ML IV SCH ×2 (08:05→20:27)
[2020-11-07 08:34] LABS: Albumin Level 3.6 gm/dl (3.4-5.0); BUN Creatinine Ratio 7.2 (10-20); Calcium 9.6 mg/dl (8.5-10.1); Creatinine Clr Calc Pharmacy 124.1 ml/min; Est GFR (African American) 111.4 ml/min; Est GFR (Non-African American) 96.1 ml/min; Potassium 4.1 mmol/L (3.5-5.1)
[2020-11-07 08:37] LABS: Bilirubin,Total 0.4 mg/dl (0.2-1); Globulin 3.6 gm/dl (2.5-4.0); Total Protein 7.2 gm/dl (6.4-8.2)
[2020-11-07] MEDS: SUCRALFATE 1 GM/10 ML UDC PO SCH ×4 (10:31→20:26)
--- NOTE | 2020-11-07 18:40 | Hospitalist Progress Note ---
Date of Service November 07, 2020 Assessment & Plan (1) Pancreatitis: Plan: - Recurrent pancreatitis - reports approx. 5 previous episodes lasting about 2-3 days - last episode approx. 6 months ago - CT/MRCP - acute pancreatitis - mild peripancreatic edema; mildly distended GB with no stones; no evidence of dilatation of the CBD or main pancreatic duct - Given level of pain will hold on HIDA to allow for narcotic pain relief - Famotidine 20 mg IV BID and add Protonix IV BID; Pain and anti-emetic regimen - LR at 150 mL/hr - Does have an appetite - will Advance to full liquid diet. If tolerated advance to low-fat diet - Did have some blood tinged vomit and will hold further Toradol and can use Tylenol for mild pain - Hgb is holding and will monitor - remains hemodynamically stable - Monitor labs in AM (2) Gallbladder anomaly: Plan: - See above; holding on HIDA to allow for adequate pain control of pancreatitis - Given no emergent findings on imaging and normal LFTs. Could defer HIDA scanning to outpatient. (3) Alcohol use disorder: Plan: - Last intake was 2 days prior to admission; no detected alcohol on admission - reports no history of withdrawal but feels he may drink more alcohol then most - No signs of withdrawal and can hold on AWSS protocol currently but monitor; has been having higher BPs but suspect this is pain related as he does not appear to be withdrawing at this time (4) Gastritis and duodenitis: Plan: - Placed on famotidine 20 mg IV every 12 hours; Protonix BID - Blood-tinged vomit earlier in admission - maybe some bunny-pike tearing? Hgb is stable and maybe some dilutional given fluids; AM labs - Hold Toradol and use Tylenol for breakthrough pain - Patient advised that this can be directly related to alcohol irritation (5) High blood pressure: Plan: Reports history of hypertension. Was originally on HCTZ then was switched to on ACEI. He states he consistently worked out and eat healthier which improved his blood pressure and was able to come off medications altogether. He does note when hospitalized for pancreatitis his blood pressures are elevated. He is asymptomatic. We will hold on adding antihypertensives at this time. Did discuss routine blood pressure checking and to discuss with his doctor back home to see if restarting medications is warranted. Given his pain, illness, may be some white coat syndromethis could explain his blood pressures. As mentioned above, does not seem to correlate with any form of alcohol withdrawal. Plan: - Continue hydration and maintain pain control; Can defer HIDA scan to outpatient - Labs in AM - Pt reports chronic issues with swallowing (mostly pills and intermittently solids) noticed this after getting out of the [employer] - did recommend that he get GI follow-up and this can be deferred to outpatient, have had numerous members with eosinophilic esophagitis causing chronic dysphagia that manifested after serving in the [employer]. No eosinophilia on labs but may warrant scopes. Discussed GI consultation here and he does not want to do a scope at this time - if Hgb stays stable without further blood-tinged vomit can defer to outpatient F/U - If tolerating regular diet and pain managedlikely can discharge home tomorrow Admission and Anticipated Discharge Date Admission Date: November 05, 2020 Subjective Reports improvement in his abdominal pain. Lipase continues to trend down. Currently tolerating a clear liquid diet and will advance to full liquids. If he continues to tolerate can advance to a low-fat diet.Hemoglobin has remained stable. He has had no further bloody emesis. He said he had some bright red blood on his stool. However no black or tarry stools. Review of Systems Review of Systems: REVIEW OF SYSTEMS General/Constitutional: Denies fever/chills ENT: + chronic difficulty swallowing - mostly pills Cardiovascular: Denies chest pain, palpitations, edema Respiratory: Denies cough, sputum, SOB, wheezing GI: + LUQ abdominal pain (improved this afternoon); Denies nausea, vomiting, constipation, diarrhea : Denies dysuria Musculoskeletal: Denies joint/muscle aches Neurologic: Denies dizziness/lightheadedness Psychiatric: Denies H/O or active alcohol withdrawal Skin: Denies rash Physical Exam Physical Exam: PHYSICAL EXAM General Appearance: WDWN in NAD who is A&O x 3 HEENT: Head is normocephalic/atraumatic; Hearing grossly intact; Mucous membran es moist Neck: Supple; Trachea midline; Neg JVD Heart: RRR with no M/G/R Lungs: CTA in all lung arteaga bilaterally; Respirations unlabored; Neg accessory muscle use Abdomen: Soft, non-distended; Positive BS x 4 quadrants; no acute abdomen, guarding, or rigidity - Tenderness to LUQ Extremities: Neg cyanosis or edema Neurological: Speech clear; Gross motor/sensory function intact; Neg focal neurologic deficits Psychiatric: Appropriate mood/affect Skin: Normal Color; Warm/Dry Results & Data Results & Data ([facility]) Vital Signs (Past 12 Hours) Vital Signs Temp Pulse Resp BP BP Pulse Ox 11/07/20 15:54 36.8 C 92 H 20 145/94 H 11/07/20 07:20 36.7 C 80 16 161/121 H 179/116 H 100 PG Care Time/CCT Total # of Minutes Spent Total Time Spent with Patient: Total time spent is greater than 50% in coordination of care (as documented) at patient's floor/unit and/or counseling patient: Coding Level of Care Code 50100 Subseq Hosp Care Lvl 2 Diagnoses Pancreatitis K85.90 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
[2020-11-08] MEDS: MoRPHine SULFATE 4 MG/ML 1 ML CARP\\VIAL IV PRN ×3 (00:07→08:02)
[2020-11-08] MEDS: LACTATED RINGER'S 1,000 ML IV SCH ×2 (02:10→14:33)
[2020-11-08 07:50] LABS: Basophils # (auto) 0.03 K/uL (0-0.2); Basophils % (auto) 0.6 %; Eosinophils # (auto) 0.25 K/uL (0-0.5); Immature Granulocytes # (auto) 0.01 K/uL (0.00-0.02); Immature Granulocytes % (auto) 0.2 %; Lymphocytes % (auto) 25.9 %; Mean Corpuscular Hemoglobin 32.2 pg (25-34); Mean Corpuscular Hgb Conc 35.3 g/dL (32-36); Mean Corpuscular Volume 91.2 fL (80-100); Mean Platelet Volume 10.6 fL (7.4-10.4); Monocytes # (auto) 0.22 K/uL (0.11-0.59); Monocytes % (auto) 4.4 %; Neutrophils # (auto) 3.21 K/uL (1.4-6.5); Neutrophils % (auto) 63.9 %; Platelet Count 215 K/uL (130-400); RDW Coefficient of Variation 13.5 % (11.5-14.5); RDW Standard Deviation 44.7 fL (36.4-46.3); Red Blood Count 3.73 M/uL (4.7-6.1); White Blood Count 5.02 K/uL (4.8-10.8)
[2020-11-08] MEDS: hydrALAZINE HCL 20 MG/ML VIAL IV PRN (08:06)
[2020-11-08 08:07] LABS: Albumin Level 3.7 gm/dl (3.4-5.0); BUN Creatinine Ratio 4.9 (10-20); Calcium 9.6 mg/dl (8.5-10.1); Creatinine Clr Calc Pharmacy 131.7 ml/min; Est GFR (African American) 119.6 ml/min; Est GFR (Non-African American) 103.2 ml/min
[2020-11-08 08:10] LABS: Bilirubin,Total 0.4 mg/dl (0.2-1); Globulin 3.6 gm/dl (2.5-4.0); Total Protein 7.3 gm/dl (6.4-8.2)
[2020-11-08] MEDS: FAMOTIDINE 20 MG in SYRINGE 3 ML IV SCH ×2 (09:43→14:31)
[2020-11-08] MEDS: PANTOprazole 40 MG in SYRINGE 0 ML IV SCH ×2 (09:43→14:32)
[2020-11-08] MEDS: SUCRALFATE 1 GM/10 ML UDC PO SCH ×2 (09:43→14:32)
[2020-11-08] MEDS: oxyCODONE/ACETAMINOPHEN 5mg/325mg TAB PO PRN ×2 (12:47→14:20)
--- NOTE | 2020-11-08 15:32 | Discharge Summary ---
Date of Service November 08, 2020 Admission HPI Per Admitting Provider The patient is a 29-year-old male with a past medical history of recurrent pancreatitis. This of the symptoms late Wednesday night and early Wednesday morning after eating pizza. He reports that he is at least 5 previous episodes of pancreatitis, with most recent being about 6 months ago. Upon reviewing systems, when asked if he drinks alcohol, patient reports he probably drinks more than most, with last intake just before the onset of symptoms. Abnormal laboratories: Lipase 2982, glucose 103, total protein 8.4, BUN 19. Alcohol level less than 3.0. COVID-[address] scan of abdomen and pelvis with contrast: Mild peripancreatic nonspecific haziness, cannot rule out interstitial edematous pancreatitis. Moderate distended gallbladder, equivocal cholelithiasis, cannot rule out acute cholecystitis. Equivocal associated gastritis and/or duodenitis. MRCP: Acute interstitial edematous pancreatitis. Distended gallbladder. No definite stones or ductal dilatation. Principal Diagnosis Acute Pancreatitis Discharge Exam PHYSICAL EXAM General Appearance: WDWN in NAD who is A&O x 3 HEENT: Head is normocephalic/atraumatic; Hearing grossly intact; Mucous membranes moist Neck: Supple; Trachea midline; Neg JVD Heart: RRR with no M/G/R Lungs: CTA in all lung arteaga bilaterally; Respirations unlabored; Neg accessory muscle use Abdomen: Soft, minimal tenderness with deep palpation, non-distended; Positive BS x 4 quadrants Extremities: Neg cyanosis or edema Neurological: Speech clear; Gross motor/sensory function intact; Neg focal neurologic deficits Psychiatric: Appropriate mood/affect Skin: Normal Color; Warm/Dry Discharge Data Allergies Allergy/AdvReac Type Severity Reaction Status Date / Time No Known Allergies Allergy Verified 11/04/20 23:30 Consultations 11/05/20 02:35 ED Decision to Admit Stat Ordered Studies Abdomen/Pelvis CT 11/04/20 23:16 CT SCAN OF THE ABDOMEN AND PELVIS WITH IV CONTRAST CLINICAL HISTORY: Generalized abdominal pain. Nausea and vomiting. Pancreatitis. COMPARISON STUDY: No priors. TECHNIQUE: Following the IV administration of 93 cc of Optiray 320, CT scan of the abdomen and pelvis is performed from the lung bases to the proximal femora. Images are reviewed in the axial, sagittal, and coronal planes. There was an IV malfunction with the initial contrast injection. IV contrast was then administered without complication. A dose lowering technique was utilized adhering to the principles of ALARA. CT DOSE: 347.28 mGy.cm FINDINGS: Lung bases: The heart is normal in size and without pericardial effusion. The lung bases are clear. Liver: The contrast-enhanced liver is normal in size and contour. Diminished hepatic attenuation suggests steatosis. There is no intrahepatic biliary ductal dilatation. The hepatic veins and portal veins are patent. Gallbladder: The gallbladder is distended but otherwise normal in appearance. Spleen: Normal in size and attenuation. Pancreas: The pancreas is mildly edematous. There is peripancreatic stranding and fluid, and the appearance is consistent with acute pancreatitis. The duct is normal in caliber. The gland enhances throughout. The splenic vein is patent. No organized peripancreatic fluid collection is identified. There are prominent tiny peripancreatic lymph nodes. Adrenal glands: Unremarkable. Kidneys: The contrast enhanced kidneys are normal in size and without hydronephrosis. The kidneys enhance and excrete symmetrically. Abdominal vasculature: The abdominal aorta is normal in course and caliber. Bowel: Mild fecal retention is seen throughout the colon. There is no bowel obstruction. The appendix is well-visualized and normal Peritoneum: There is no intraperitoneal free air or abdominal ascites. There is a fat-containing umbilical hernia. Lymphadenopathy: None. Pelvic viscera: The bladder, prostate, and seminal vesicles are normal as visualized. Skeletal structures: No lytic or blastic lesions are seen. IMPRESSION: 1. Findings are consistent with acute pancreatitis. 2. The gland enhances throughout and there is no organized peripancreatic fluid collection. 3. Hepatic steatosis. ACT 112: Negative or not required by law. Electronically signed by: Gallito Franz M.D. 11/05/2020 7:44 AM Cholangiopancreatography MRI 11/05/20 02:41 MR MRCP HISTORY: pancreatitis, dilated gallbladder on CT TECHNIQUE: MRCP of the abdomen was performed without contrast according to standard departmental protocol. COMPARISON STUDY: Abdomen and pelvis CT 11/04/2020. FINDINGS: The lung bases are clear. The liver, spleen, adrenal glands, and kidneys unremarkable. The gallbladder remains mildly distended. No gallbladder wall thickening or gallstones identified. Mild peripancreatic edema persists consistent with acute pancreatitis. The main portal vein is patent. No retroperitoneal lymphadenopathy. No evidence for dilatation of the common bile duct or main pancreatic duct. The main pancreatic duct is not well visualized due to the motion artifact. The mid common bile duct is also not well identified and is likely transient decompressed by edematous pancreas. IMPRESSION: 1. Acute pancreatitis, unchanged. 2. Mildly distended gallbladder. No gallstones. 3. No evidence for dilatation of the common bile duct or main pancreatic duct. ACT 112: Negative or not required by law. Electronically signed by: Mg Medina M.D. 11/05/2020 8:05 AM Hospital Course (1) Pancreatitis: - Recurrent pancreatitis - reports approx. 5 previous episodes lasting about 2-3 days - last episode approx. 6 months ago - CT/MRCP - acute pancreatitis - mild peripancreatic edema; mildly distended GB with no stones; no evidence of dilatation of the CBD or main pancreatic duct; LFTS are WNL - Lipase normalized prior to admission; able to tolerate a low fat diet without worsening pain - Did have blood-tinged vomit early in admission but Hgb remained stable and no further episodes since first admission - did discuss GI consultation for consideration for EGD but he deferred. Given the stability of his - - Hgb and hemodynamically stable this can be held and question maybe some bunny-pike tearing given previous vomiting prior to admission (2) Gallbladder anomaly: - See above - Given no emergent findings on imaging and normal LFTs. Could defer HIDA scanning to outpatient. (3) Alcohol use disorder: - Last intake was 2 days prior to admission; no detected alcohol on admission - reports no history of withdrawal but feels he may drink more alcohol then most - No signs of withdrawal; has been having higher BPs but suspect this is pain related as he does not appear to be withdrawing at this time (4) Gastritis and duodenitis: - Placed on famotidine 20 mg IV every 12 hours; Protonix BID - will prescribe Protonix daily x 14 days and Carafate QID - Blood-tinged vomit earlier in admission - maybe some bunny-pike tearing? Hgb is stable - Hold Toradol and use Tylenol for breakthrough pain - Patient advised that this can be directly related to alcohol irritation (5) High blood pressure: Reports history of hypertension. Was originally on HCTZ then was switched to on ACEI. He states he consistently worked out and ate healthier which improved his blood pressure and was able to come off medications altogether. He does note when hospitalized for pancreatitis his blood pressures are elevated. He is asymptomatic. We will hold on adding antihypertensives at this time. Did discuss routine blood pressure checking and to discuss with his doctor back home to see if restarting medications is warranted. Given his pain, illness, may be some white coat syndromethis could explain his blood pressures. As mentioned above, does not seem to correlate with any form of alcohol withdrawal. - Pt reports chronic issues with swallowing (mostly pills and intermittently solids) noticed this after getting out of the [employer] - did recommend that he get GI follow-up and this can be deferred to outpatient, have had numerous members with eosinophilic esophagitis causing chronic dysphagia that manifested after serving in the [employer]. No eosinophilia on labs but may warrant scopes. 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 This includes discussion with patient/family, assessment, intervention, medication reconciliation, and coordination of care. Discharge Plan Discharge Items Patient Disposition: Home - Self-Care Reason For Visit: PANCREATITIS Discharge Diagnosis: Acute Pancreatitis Activity: Resume your previous activity Non-emergency contact: Primary Care Provider Call non-emergency contact if: you have any medication questions, your symptoms worsen and you have a fever Follow-up/Referrals: PCP,NO [Primary Care Provider] - Diet: Low Fat Addtl Attending Provider Instructions: Pancreatitis: - You had another episode of pancreatitis. Luckily your lipase (pancreas enzyme is back to normal now) - Imaging did show a mildly distended gallbladder but no stones or dilatation of the ducts connecting it. Your liver tests are within normal limits. You may benefit from a gallbladder scan called a HIDA scan that can be done back home to see how the gallbladder is functioning. Luckily right now there are no signs of acute infection with the gallbladder - Make sure to drink plenty of fluids. Follow a low fat diet for a couple weeks. Avoid alcohol. - You may continue to take over the counter heart burn medicine if preferred. However will send for Protonix which helps reduce acid to take for the next 2 weeks to help with any stomach irritation. I will also prescribe Carafate but if the insurance doesn't pay for it then you could use Maalox to help coat the stomach. Blood Pressure: - Your blood pressure has been running high in the hospital. This may be due to illness, pain, or being in the hospital. - Recommend to check this regularly at home and talk with your doctor if it continues to stay high Swallowing: - Recommend getting established with the GI doctors to consider a scope into your esophagus. There could be many things that can cause difficulty swallowing and the best way to look is with a scope or EGD. I have seen service members develop eosinophic esophagitis while serving in the [employer] [facility] so that could be possible vs other causes of swallowing issues. Pending Studies at Discharge: No Stand-Alone Forms: My [facility] mLED, Opioid Pain Management, Work/School Release, Smoking Cessation Medications and DC Order Prescriptions: New sucralfate 100 mg/mL Suspension 1 g PO QID 10 Days Qty: 400 RF: 0 ondansetron 4 mg tablet,disintegrating 4 mg PO Q6H PRN (Reason: nausea and vomiting) 7 Days Qty: 28 RF: 0 pantoprazole [Protonix] 40 mg tablet,delayed release (DR/EC) 40 mg PO DAILY 14 Days Qty: 14 RF: 0 Continued ibuprofen 200 mg Tablet 600 - 800 mg PO DIRECTED PRN (Reason: Pain) RF: 0 Discharge Orders: Discharge Order (Routine); Ordered 11/08/20 Ordered By: Gianna Benson/Other Patient Handouts: Understanding Pancreatitis Admission Data Admit Date/Time: 11/05/20 03:07 Attending Provider: Bhaskar Lebron Admit Provider: Ruslan Raphael Primary Care Provider: PCP,NO Other Providers: Ruslan Raphael Other Interventions: Discharge Summary Assessment (RN) Last Done: 11/08/20 14:13 Supervising Physician Co-Signing Physician Notes Attending note: patient seen and examined with Gianna Pardo PA-C. I agree with her discharge summary. I personally reviewed the labs and imaging findings. patient feeling much better and tolerating diet, eating solid foods, no nausea, minimal pain lipase trending down appropriately, patient anxious to get out of the hospital - Acute pancreatitis: h/o multiple episodes, discussed that he needs to stay completely sober, alcohol will trigger further episodes no obvious gall bladder pathology, can get HIDA outpatient if needed follow up with gastroenterology for recurrent pancreatitis and dysphagia Coding Level of Care Code D/C DAY MANAGEMENT >30 MINS Diagnoses Pancreatitis K85.90 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
--- NOTE | 2020-11-09 08:54 | Emergency Department Note ---
Impression & Plan Pancreatitis ED Provider Note CHIEF COMPLAINT: Upper abdominal pain HISTORY OF PRESENT ILLNESS: This 29-year-old male patient presents to the emergency department by private vehicle with complaints of upper abdominal pain. Patient states he is in the area from out of town on work. He did have a night of drinking and eating late night pizza. He does have a history of pancreatitis and believes this is a similar presentation. He states he does still have his gallbladder. He denies any fevers but has had nausea vomiting. REVIEW OF SYSTEMS: A review of systems was performed with positives and pertinent negatives listed in the history of present illness. 10 systems were reviewed and are otherwise negative. ALLERGIES: See Below MEDICATIONS: See Below PMH: See below SOCIAL HISTORY: See below PHYSICAL EXAM: Vital signs reviewed. General: Generally well-appearing 29-year-old male, in no significant distress. HEENT: No scleral icterus, PERRLA, neck supple. Atraumatic. Cardiovascular: Regular rate and rhythm, no extra sounds. Pulmonary: Clear to auscultation bilaterally, normal work of breathing. Abdomen: Soft, nontender, nondistended, positive bowel sounds. Musculoskeletal: Atraumatic, no peripheral edema. Neurologic: Patient awake alert and oriented x3, speech is clear. Follows commands Skin: Warm, dry, no rash EMERGENCY DEPARTMENT COURSE: This patient was evaluated and appeared to be in no significant distress. IV access was obtained and laboratory work was drawn. Patient was placed on security monitor and hydrated with normal saline solution. He was given IV Dilaudid and Zofran for his discomfort. Laboratory work reveals a normal WBC but a lipase of 2900. CT imaging of the abdomen and pelvis reveals evidence of acute pancreatitis without abscess or fluid collection. Patient's case was discussed with the hospitalist service who will evaluate patient for further management. Patient is aware of the plan and agrees. MONITORING: An order for cardiac monitoring was placed and the patient is noted to be in a normal sinus rhythm at 78 beats per minute. RADIOLOGY: See below DIAGNOSIS: Acute pancreatitis Disposition: Admission, hospitalist evaluation Past Med/Surg History Medical History (Updated 11/09/20 @ 09:20 by Cintia Velez MD) Alcohol use disorder Gastritis and duodenitis High blood pressure Pancreatitis Social History Smoking Status: Former smoker Cigarettes Per Day: 3 packs; Second Hand Exposure: No; Hx Alcohol Use: Yes Alcohol type: beer, wine and hard liquor Hx Substance Use: No Preferred Language: Mosotho Communication Ability: Effective [employer] Model Required: No Beliefs That Will Affect Care: None Current Living Situation: Alone Feels Safe at Home: Yes Assistive Devices: None Allergies Allergies Allergy/AdvReac Type Severity Reaction Status Date / Time No Known Allergies Allergy Verified 11/04/20 23:30 Home Meds Home Medications Medication Instructions Recorded Confirmed ibuprofen 200 mg tablet 600 - 800 mg PO DIRECTED PRN 11/04/20 11/04/20 Previous Rx's Medication Instructions Recorded ondansetron 4 mg disintegrating 4 mg PO Q6H PRN 7 Days #28 tab 11/08/20 tablet oxycodone-acetaminophen 5 mg-325 1 - 2 tab PO Q6H PRN 3 Days #18 tab 11/08/20 mg tablet (Percocet) pantoprazole 40 mg tablet,delayed 40 mg PO DAILY 14 Days #14 tab 11/08/20 release (Protonix) sucralfate 100 mg/mL oral 1 g PO QID 10 Days #400 ml 11/08/20 suspension Results & Data (ED) Home Medications Current Medication List: was personally reviewed by me Laboratory Data Attestation: I reviewed the patient's lab results. Result diagrams: 11/08/20 07:40 11/08/20 07:40 Lab Results 11/04/20 11/04/20 11/04/20 Range/Units 23:54 23:54 Unknown WBC 9.64 (4.8-10.8) K/uL RBC 4.84 (4.7-6.1) M/uL Hgb 15.9 (14.0-18.0) g/dL Hct 46.3 (42-52) % MCV 95.7 (80-100) fL MCH 32.9 (25-34) pg MCHC 34.3 (32-36) g/dL RDW Std Deviation 48.4 H (36.4-46.3) fL RDW Coeff of Austen 13.8 (11.5-14.5) % Plt Count 258 (130-400) K/uL MPV 11.1 H (7.4-10.4) fL Immature Gran % (Auto) 0.1 % Neut % (Auto) 75.4 % Lymph % (Auto) 13.5 % Angelina % (Auto) 8.9 % Eos % (Auto) 1.9 % Baso % (Auto) 0.2 % Neut # (Auto) 7.27 H (1.4-6.5) K/uL Lymph # (Auto) 1.30 (1.2-3.4) K/uL Angelina # (Auto) 0.86 H (0.11-0.59) K/uL Eos # (Auto) 0.18 (0-0.5) K/uL Baso # (Auto) 0.02 (0-0.2) K/uL Immature Gran # (Auto) 0.01 (0.00-0.02) K/uL Sodium (136-145) mmol/L Potassium (3.5-5.1) mmol/L Chloride (98-107) mmol/L Carbon Dioxide (21-32) mmol/L Anion Gap (3-11) BUN (7-18) mg/dl Creatinine (0.6-1.4) mg/dl Est Cr Clr Drug Dosing ml/min Est GFR ( Amer) ml/min Est GFR (Non-Af Amer) ml/min BUN/Creatinine Ratio (10-20) Glucose (70-99) mg/dl Calcium (8.5-10.1) mg/dl Total Bilirubin (0.2-1) mg/dl AST (15-37) U/L ALT (12-78) U/L Alkaline Phosphatase (45-117) U/L Total Protein (6.4-8.2) gm/dl Albumin (3.4-5.0) gm/dl Globulin (2.5-4.0) gm/dl Albumin/Globulin Ratio (0.9-2) Lipase (73-393) U/L Ethyl Alcohol mg/dL (0-3) mg/dl COVID-19 Eval Order Covid19 at [facility] SARS-CoV-2 (PCR) NEGATIVE (Negative) 11/04/20 11/05/20 Range/Units Unknown 02:59 WBC (4.8-10.8) K/uL RBC (4.7-6.1) M/uL Hgb (14.0-18.0) g/dL Hct (42-52) % MCV (80-100) fL MCH (25-34) pg MCHC (32-36) g/dL RDW Std Deviation (36.4-46.3) fL RDW Coeff of Austen (11.5-14.5) % Plt Count (130-400) K/uL MPV (7.4-10.4) fL Immature Gran % (Auto) % Neut % (Auto) % Lymph % (Auto) % Angelina % (Auto) % Eos % (Auto) % Baso % (Auto) % Neut # (Auto) (1.4-6.5) K/uL Lymph # (Auto) (1.2-3.4) K/uL Angelina # (Auto) (0.11-0.59) K/uL Eos # (Auto) (0-0.5) K/uL Baso # (Auto) (0-0.2) K/uL Immature Gran # (Auto) (0.00-0.02) K/uL Sodium 138 (136-145) mmol/L Potassium 3.9 (3.5-5.1) mmol/L Chloride 104 (98-107) mmol/L Carbon Dioxide 27 (21-32) mmol/L Anion Gap 8.0 (3-11) BUN 19 H (7-18) mg/dl Creatinine 1.29 (0.6-1.4) mg/dl Est Cr Clr Drug Dosing 101.9 ml/min Est GFR ( Amer) 86.9 ml/min Est GFR (Non-Af Amer) 75.0 ml/min BUN/Creatinine Ratio 14.5 (10-20) Glucose 103 H (70-99) mg/dl Calcium 10.2 H (8.5-10.1) mg/dl Total Bilirubin 0.9 (0.2-1) mg/dl AST 27 (15-37) U/L ALT 47 (12-78) U/L Alkaline Phosphatase 100 (45-117) U/L Total Protein 8.4 H (6.4-8.2) gm/dl Albumin 4.8 (3.4-5.0) gm/dl Globulin 3.6 (2.5-4.0) gm/dl Albumin/Globulin Ratio 1.3 (0.9-2) Lipase 2982 H (73-393) U/L Ethyl Alcohol mg/dL < 3.0 (0-3) mg/dl COVID-19 Eval Order SARS-CoV-2 (PCR) (Negative) Administered Medications Discontinued Medications Clonidine HCl (Clonidine Hcl 0.1 Mg Tab) 0.1 mg PO NOW ONE Stop: 11/04/20 23:42 Last Admin: 11/05/20 00:06 Dose: 0.1 mg Documented by: [id number] Diphenhydramine HCl (Diphenhydramine 50 Mg/Ml Vial) 50 mg IV NOW STA Stop: 11/06/20 00:26 Last Admin: 11/06/20 00:44 Dose: 50 mg Documented by: [id number] Hydralazine HCl (Hydralazine Hcl 20 Mg/Ml Vial) 10 mg IV Q6H PRN PRN Reason: Hypertension Stop: 12/05/20 17:09 Last Admin: 11/08/20 08:06 Dose: 10 mg Documented by: [id number] Admin: 11/07/20 07:52 Dose: 10 mg Documented by: [id number] Admin: 11/05/20 18:00 Dose: 10 mg Documented by: [id number] Hydromorphone HCl (Hydromorphone Inj 0.5 Mg/0.5 Ml Syr) 0.5 mg IV NOW STA Stop: 11/04/20 23:16 Last Admin: 11/04/20 23:46 Dose: 0.5 mg Documented by: [id number] Hydromorphone HCl (Hydromorphone Inj 0.5 Mg/0.5 Ml Syr) 0.5 mg IV NOW STA Stop: 11/05/20 01:28 Last Admin: 11/05/20 01:35 Dose: 0.5 mg Documented by: [id number] Sodium Chloride (Nss 1000ml) 1,000 mls @ 125 mls/hr IV .Q8H LUI Stop: 12/04/20 23:14 Last Infusion: 11/05/20 06:27 Dose: 0 mls/hr Documented by: [id number] Admin: 11/05/20 00:36 Dose: 125 mls/hr Documented by: [id number] Sodium Chloride (Nss 1000ml) 500 mls @ 999 mls/hr IV .Q31M ONE Stop: 11/04/20 23:45 Last Infusion: 11/05/20 00:22 Dose: 0 mls/hr Documented by: [id number] Admin: 11/04/20 23:51 Dose: 999 mls/hr Documented by: [id number] Lactated Ringer's (Lr) 1,000 mls @ 150 mls/hr IV .Q6H40M LUI Stop: 11/05/20 18:49 Last Infusion: 11/05/20 19:00 Dose: 0 mls/hr Documented by: [id number] Admin: 11/05/20 12:09 Dose: 150 mls/hr Documented by: [id number] Infusion: 11/05/20 12:09 Dose: 150 mls/hr Documented by: [id number] Admin: 11/05/20 06:21 Dose: 150 mls/hr Documented by: [id number] Famotidine 20 mg/ Syringe 5 mls @ 2.5 mls/min IV Q12 LUI Stop: 12/05/20 05:59 Last Admin: 11/08/20 14:31 Dose: Not Given Documented by: [id number] Admin: 11/07/20 20:27 Dose: 2.5 mls/min Documented by: [id number] Admin: 11/07/20 08:05 Dose: 2.5 mls/min Documented by: [id number] Admin: 11/06/20 20:03 Dose: 2.5 mls/min Documented by: [id number] Admin: 11/06/20 08:59 Dose: 2.5 mls/min Documented by: [id number] Admin: 11/05/20 20:09 Dose: 2.5 mls/min Documented by: [id number] Admin: 11/05/20 06:21 Dose: 2.5 mls/min Documented by: [id number] Lactated Ringer's (Lr) 1,000 mls @ 125 mls/hr IV .Q8H LUI Stop: 12/06/20 09:14 Last Admin: 11/08/20 14:33 Dose: Not Given Documented by: [id number] Infusion: 11/08/20 10:00 Dose: 0 mls/hr Documented by: [id number] Admin: 11/08/20 02:10 Dose: 125 mls/hr Documented by: [id number] Infusion: 11/08/20 02:10 Dose: 125 mls/hr Documented by: [id number] Admin: 11/07/20 18:33 Dose: 125 mls/hr Documented by: [id number] Infusion: 11/07/20 18:31 Dose: 125 mls/hr Documented by: [id number] Admin: 11/07/20 10:31 Dose: 125 mls/hr Documented by: [id number] Infusion: 11/07/20 10:30 Dose: 0 mls/hr Documented by: [id number] Admin: 11/07/20 02:15 Dose: 125 mls/hr Documented by: [id number] Infusion: 11/07/20 02:15 Dose: 125 mls/hr Documented by: [id number] Admin: 11/06/20 18:28 Dose: 125 mls/hr Documented by: [id number] Infusion: 11/06/20 18:25 Dose: 0 mls/hr Documented by: [id number] Admin: 11/06/20 09:44 Dose: 125 mls/hr Documented by: [id number] Pantoprazole Sodium 40 mg/ (Syringe) 10 mls @ 5 mls/min IV BID LUI Stop: 11/08/20 09:59 Last Admin: 11/08/20 14:32 Dose: Not Given Documented by: [id number] Admin: 11/07/20 20:28 Dose: 5 mls/min Documented by: [id number] Admin: 11/07/20 08:05 Dose: 5 mls/min Documented by: [id number] Admin: 11/06/20 20:02 Dose: 5 mls/min Documented by: [id number] Admin: 11/06/20 10:25 Dose: 5 mls/min Documented by: [id number] Influenza Virus Vaccine Quadrival (Fluarix Quadrivalent 0.5 Ml Syr) 0.5 ml IM .ONCE ONE Stop: 11/05/20 06:16 Last Admin: 11/08/20 14:30 Dose: Not Given Documented by: [id number] Ioversol (Optiray 320 100ml) 93 ml IV ONCE ONE Stop: 11/04/20 23:42 Last Admin: 11/04/20 23:41 Dose: 93 ml Documented by: [id number] Ketorolac Tromethamine (Ketorolac Tromethamine 15 Mg/Ml Vial) 15 mg IV Q6H PRN PRN Reason: Moderate Pain Stop: 11/10/20 05:22 Last Admin: 11/05/20 17:51 Dose: 15 mg Documented by: [id number] Admin: 11/05/20 05:34 Dose: 15 mg Documented by: [id number] Ketorolac Tromethamine (Ketorolac Tromethamine 15 Mg/Ml Vial) 15 mg IV NOW ONE Stop: 11/05/20 06:38 Last Admin: 11/05/20 06:40 Dose: 15 mg Documented by: [id number] Ketorolac Tromethamine (Ketorolac Tromethamine 15 Mg/Ml Vial) 30 mg IV Q6H PRN PRN Reason: Moderate Pain Stop: 11/10/20 05:22 Last Admin: 11/05/20 20:09 Dose: 30 mg Documented by: [id number] Morphine Sulfate (Morphine Sulfate 4 Mg/Ml 1 Ml Carp\Vial) 4 mg IV Q3H PRN PRN Reason: Pain Stop: 11/19/20 09:02 Last Admin: 11/05/20 12:08 Dose: 4 mg Documented by: [id number] Admin: 11/05/20 09:12 Dose: 4 mg Documented by: [id number] Morphine Sulfate (Morphine Sulfate 4 Mg/Ml 1 Ml Carp\Vial) 4 mg IV Q2H PRN PRN Reason: Pain Stop: 11/19/20 09:02 Last Admin: 11/08/20 08:02 Dose: 4 mg Documented by: [id number] Admin: 11/08/20 02:11 Dose: 4 mg Documented by: [id number] Admin: 11/08/20 00:07 Dose: 4 mg Documented by: [id number] Admin: 11/07/20 21:56 Dose: 4 mg Documented by: [id number] Admin: 11/07/20 18:34 Dose: 4 mg Documented by: [id number] Admin: 11/07/20 15:43 Dose: 4 mg Documented by: [id number] Admin: 11/07/20 12:43 Dose: 4 mg Documented by: [id number] Admin: 11/07/20 07:53 Dose: 4 mg Documented by: [id number] Admin: 11/07/20 03:56 Dose: 4 mg Documented by: [id number] Admin: 11/07/20 00:28 Dose: 4 mg Documented by: [id number] Admin: 11/06/20 21:44 Dose: 4 mg Documented by: [id number] Admin: 11/06/20 18:29 Dose: 4 mg Documented by: [id number] Admin: 11/06/20 14:56 Dose: 4 mg Documented by: [id number] Admin: 11/06/20 13:01 Dose: 4 mg Documented by: [id number] Admin: 11/06/20 09:43 Dose: 4 mg Documented by: [id number] Admin: 11/06/20 07:16 Dose: 4 mg Documented by: [id number] Admin: 11/06/20 04:59 Dose: 4 mg Documented by: [id number] Admin: 11/05/20 23:43 Dose: 4 mg Documented by: [id number] Admin: 11/05/20 21:24 Dose: 4 mg Documented by: [id number] Admin: 11/05/20 19:07 Dose: 4 mg Documented by: [id number] Admin: 11/05/20 17:01 Dose: 4 mg Documented by: [id number] Admin: 11/05/20 14:56 Dose: 4 mg Documented by: [id number] Ondansetron HCl (Ondansetron Inj 2 Mg/Ml 2 Ml Vial) 4 mg IV NOW STA Stop: 11/04/20 23:16 Last Admin: 11/04/20 23:47 Dose: 4 mg Documented by: [id number] Ondansetron HCl (Ondansetron Inj 2 Mg/Ml 2 Ml Vial) 4 mg IV Q6H PRN PRN Reason: Nausea Stop: 12/05/20 05:29 Last Admin: 11/05/20 19:33 Dose: 4 mg Documented by: [id number] Admin: 11/05/20 12:08 Dose: 4 mg Documented by: [id number] Ondansetron HCl (Ondansetron Inj 2 Mg/Ml 2 Ml Vial) 4 mg IV Q4H PRN PRN Reason: Nausea Stop: 12/05/20 05:29 Last Admin: 11/06/20 08:51 Dose: 4 mg Documented by: [id number] Admin: 11/06/20 04:59 Dose: 4 mg Documented by: [id number] Ondansetron HCl (Ondansetron Inj 2 Mg/Ml 2 Ml Vial) Confirm Administered Dose 4 mg .ROUTE .STK-MED ONE Stop: 11/06/20 00:16 Last Admin: 11/06/20 00:18 Dose: 4 mg Documented by: [id number] Oxycodone/Acetaminophen (Oxycodone/Acetaminophen 5mg/325mg Tab) 1 - 2 tab PO Q4H PRN PRN Reason: Pain Stop: 11/21/20 11:53 Last Admin: 11/08/20 14:20 Dose: 1 tab Documented by: [id number] Admin: 11/08/20 12:47 Dose: 1 tab Documented by: [id number] Sucralfate (Sucralfate 1 Gm Tab) 1 gm PO ONE ONE Stop: 11/06/20 00:46 Last Admin: 11/06/20 01:30 Dose: Not Given Documented by: [id number] Sucralfate (Sucralfate 1 Gm/10 Ml Udc) 1 gm PO ONE ONE Stop: 11/06/20 01:16 Last Admin: 11/06/20 01:23 Dose: 1 gm Documented by: [id number] Sucralfate (Sucralfate 1 Gm/10 Ml Udc) 1 gm PO QID LUI Stop: 12/06/20 09:44 Last Admin: 11/08/20 14:32 Dose: Not Given Documented by: [id number] Admin: 11/08/20 09:43 Dose: 1 gm Documented by: [id number] Admin: 11/07/20 20:26 Dose: 1 gm Documented by: [id number] Admin: 11/07/20 18:34 Dose: 1 gm Documented by: [id number] Admin: 11/07/20 15:37 Dose: 1 gm Documented by: [id number] Admin: 11/07/20 10:31 Dose: 1 gm Documented by: [id number] Admin: 11/06/20 20:02 Dose: 1 gm Documented by: [id number] Admin: 11/06/20 16:39 Dose: 1 gm Documented by: [id number] Admin: 11/06/20 14:59 Dose: 1 gm Documented by: [id number] Admin: 11/06/20 10:25 Dose: 1 gm Documented by: [id number] Imaging Data Radiologist's Impression: Abdomen/Pelvis CT 11/04/20 23:16 CT SCAN OF THE ABDOMEN AND PELVIS WITH IV CONTRAST CLINICAL HISTORY: Generalized abdominal pain. Nausea and vomiting. Pancreatitis. COMPARISON STUDY: No priors. TECHNIQUE: Following the IV administration of 93 cc of Optiray 320, CT scan of the abdomen and pelvis is performed from the lung bases to the proximal femora. Images are reviewed in the axial, sagittal, and coronal planes. There was an IV malfunction with the initial contrast injection. IV contrast was then administered without complication. A dose lowering technique was utilized adhering to the principles of ALARA. CT DOSE: 347.28 mGy.cm FINDINGS: Lung bases: The heart is normal in size and without pericardial effusion. The lung bases are clear. Liver: The contrast-enhanced liver is normal in size and contour. Diminished hepatic attenuation suggests steatosis. There is no intrahepatic biliary ductal dilatation. The hepatic veins and portal veins are patent. Gallbladder: The gallbladder is distended but otherwise normal in appearance. Spleen: Normal in size and attenuation. Pancreas: The pancreas is mildly edematous. There is peripancreatic stranding and fluid, and the appearance is consistent with acute pancreatitis. The duct is normal in caliber. The gland enhances throughout. The splenic vein is patent. No organized peripancreatic fluid collection is identified. There are prominent tiny peripancreatic lymph nodes. Adrenal glands: Unremarkable. Kidneys: The contrast enhanced kidneys are normal in size and without hydronephrosis. The kidneys enhance and excrete symmetrically. Abdominal vasculature: The abdominal aorta is normal in course and caliber. Bowel: Mild fecal retention is seen throughout the colon. There is no bowel obstruction. The appendix is well-visualized and normal Peritoneum: There is no intraperitoneal free air or abdominal ascites. There is a fat-containing umbilical hernia. Lymphadenopathy: None. Pelvic viscera: The bladder, prostate, and seminal vesicles are normal as visualized. Skeletal structures: No lytic or blastic lesions are seen. IMPRESSION: 1. Findings are consistent with acute pancreatitis. 2. The gland enhances throughout and there is no organized peripancreatic fluid collection. 3. Hepatic steatosis. ACT 112: Negative or not required by law. Electronically signed by: Gallito Franz M.D. 11/05/2020 7:44 AM Cholangiopancreatography MRI 11/05/20 02:41 MR MRCP HISTORY: pancreatitis, dilated gallbladder on CT TECHNIQUE: MRCP of the abdomen was performed without contrast according to standard departmental protocol. COMPARISON STUDY: Abdomen and pelvis CT 11/04/2020. FINDINGS: The lung bases are clear. The liver, spleen, adrenal glands, and kidneys unremarkable. The gallbladder remains mildly distended. No gallbladder wall thickening or gallstones identified. Mild peripancreatic edema persists consistent with acute pancreatitis. The main portal vein is patent. No retroperitoneal lymphadenopathy. No evidence for dilatation of the common bile duct or main pancreatic duct. The main pancreatic duct is not well visualized due to the motion artifact. The mid common bile duct is also not well identified and is likely transient decompressed by edematous pancreas. IMPRESSION: 1. Acute pancreatitis, unchanged. 2. Mildly distended gallbladder. No gallstones. 3. No evidence for dilatation of the common bile duct or main pancreatic duct. ACT 112: Negative or not required by law. Electronically signed by: Mg Medina M.D. 11/05/2020 8:05 AM Blood Pressure Blood Pressure Findings: Elevated blood pressure Blood Pressure Disposition: further management by hospitalist Discharge Plan Visit Data Chief Complaint: Abdominal Pain Stated Complaint: ABD PAIN, VOMITING ED Provider: Cintia Velez Discharge Problem: Pancreatitis Patient Disposition: Admitted As Inpatient Discharge Instructions Interventions: ED Discharge Assessment Last Done: 11/05/20 05:11 Discharge Problem: Pancreatitis Qualifiers: Chronicity: acute Pancreatitis type: unspecified pancreatitis type Acute pancreatitis complication: no infection or necrosis Qualified Code(s): K85.90 - Acute pancreatitis without necrosis or infection, unspecified
--- NOTE | 2020-11-18 14:20 | Coding Query ---
CODING QUERY To promote full compliance with coding requirements relating to patient care, provider participation is requested in all cases of consolidation accountant uncertainty. Please assist us with the question(s) below: Coding Question(s): There is documentation in the record and on Discharge Summary of, " Gastritis and duodenitis: - Placed on famotidine 20 mg IV every 12 hours; Protonix BID - will prescribe Protonix daily x 14 days and Carafate QID - Blood-tinged vomit earlier in admission - maybe some nettie-stephenson tearing? Hgb is stable - Hold Toradol and use Tylenol for breakthrough pain - Patient advised that this can be directly related to alcohol irritation". Please specify below, regarding blood-tinged vomit, to clarify the likely source(s) that were treated during this admission. 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 ( ) Gastritis and Duodenitis without bleeding only ( ) Other: Please Specify Physician's Response(s): Thank you Judit Chen Principal Diagnosis: "that condition established after study, to be chiefly responsible for occasioning the admission of the patient to the hospital for care." Co-Existing Principal Diagnosis: "when two or more diagnoses equally meet the criteria for principal diagnosis as determined by the circumstances of admission, diagnostic work up, and/or therapy provided, and the Alphabetic Index, Tabular List, or another coding guideline does not provide sequencing direction, any one of the diagnoses may be sequenced first." "When the physician has documented what appears to be a current diagnosis in the body of the record, but has not included the diagnosis in the final diagnostic statement, the physician should be asked whether the diagnosis should be added." (Source Coding [facility] 2 QTR90. p3-4) BROOKED
== END 2020-11-08 14:25 | disposition home or self-care (01) | DRG 438 ==
LOC: ED 18:11 → 3N 11-05 03:07 → SUATTDRO 11-05 03:07 → 3N 11-05 05:11